=== PATIENT | male | born 1990 | race Native Hawaiian/Other Pacific Islander ===

== ENCOUNTER 2021-10-20 15:28 | Emergency (ER) | payer SELFPAY ==
[2021-10-21 01:13] LABS: Basophils # (Auto) 0.1 K/mm3 (0.0-0.1); Basophils % (Auto) 0.9 % (0.0-1.8); Eosinophils # (Auto) 0.2 K/mm3 (0.0-0.4); Eosinophils % (Auto) 1.9 % (0.0-4.3); Hematocrit 45.4 % (35.5-45.6); Hemoglobin 15.2 gm/dl (11.8-15.2); Lymphocytes # (Auto) 2.4 K/mm3 (1.2-5.4); Lymphocytes % (Auto) 27.3 % (13.4-35.0); Mean Corpuscular HGB Conc 33 % (32-34); Mean Corpuscular Volume 90 fl (84-94); Monocytes # (Auto) 0.7 K/mm3 (0.0-0.8); Monocytes % (Auto) 8.3 % (0.0-7.3); Platelet Count 326 K/mm3 (140-440); Red Blood Count 5.03 M/mm3 (3.65-5.03); Red Cell Distribution Width 12.6 % (13.2-15.2)
[2021-10-21 01:24] LABS: INR 0.96 (0.87-1.13)
[2021-10-21 01:38] LABS: Alanine Aminotransferase 43 units/L (7-56); BUN/Creatinine Ratio 17; Blood Urea Nitrogen 15 mg/dL (9-20); Calcium 9.7 mg/dL (8.4-10.2); Hemolysis Index 12
--- NOTE | 2021-10-21 01:49 | XRay Report ---
CHEST 1 VIEW INDICATION / CLINICAL INFORMATION: sob CP. COMPARISON: Chest x-ray 11/21/2008 FINDINGS: SUPPORT DEVICES: None. HEART / MEDIASTINUM: No significant abnormality. LUNGS / PLEURA: No significant pulmonary or pleural abnormality. BONES: No significant osseous abnormality. ADDITIONAL FINDINGS: No significant additional findings. IMPRESSION: 1. No active cardiopulmonary disease. Signer Name: Lyle Montelongo II, MD Signed: 10/21/2021 1:45 AM Workstation Name: [id number]
[2021-10-21] MEDS ORDERED: SODIUM CHLORIDE 0.9% 1000 ML 1,000 ML IV ONE (03:06)
[2021-10-21] MEDS ORDERED: KETOROLAC 30 MG/1 ML INJ IV ONE (03:06)
[2021-10-21 03:40] LABS: Bilirubin,Urine NEG (Negative); Blood,Urine NEG (Negative); Color,Urine Yellow (Yellow); Mucus,Urine FEW /HPF; Protein,Urine <15 mg/dL mg/dL (Negative); Urobilinogen,Urine < 2.0 mg/dL (<2.0)
--- NOTE | 2021-10-21 04:12 | Cat Scan Report ---
CT ABDOMEN AND PELVIS WITH CONTRAST INDICATION / CLINICAL INFORMATION: Patient complains of abdominal pain. TECHNIQUE: Axial CT images were obtained through the abdomen and pelvis after 100 cc Omnipaque [address] scans at this location are performed using CT dose reduction for ALARA by means of automated exposure control. COMPARISON: None available. FINDINGS: LOWER CHEST: No significant abnormality of the imaged chest. LIVER: Diffuse low attenuation compatible with hepatic steatosis. GALLBLADDER: No significant abnormality. BILE DUCTS: No significant abnormality. SPLEEN: No significant abnormality. PANCREAS: No significant abnormality. ADRENALS: No significant abnormality. RIGHT KIDNEY / URETER: No significant abnormality. LEFT KIDNEY / URETER: No significant abnormality. STOMACH / DUODENUM / SMALL BOWEL: No significant abnormality. COLON: Diverticulosis without acute inflammation. APPENDIX: No significant abnormality. PERITONEUM: No free air or free fluid are present within the abdomen or pelvis. LYMPH NODES: No significant adenopathy. AORTA / ARTERIES: No significant abnormality. IVC / VEINS: No significant abnormality. URINARY BLADDER: Minimal wall thickening of the urinary bladder likely influenced by low bladder volu me. REPRODUCTIVE ORGANS: No significant abnormality. ADDITIONAL ABDOMINAL/PELVIC FINDINGS: None. SKELETAL SYSTEM: No significant abnormality. IMPRESSION: 1. No acute findings within the abdomen or pelvis. Signer Name: Lyle Montelongo II, MD Signed: 10/21/2021 4:08 AM Workstation Name: [id number]
--- NOTE | 2021-10-21 04:37 | Ultrasound Report ---
ULTRASOUND ABDOMEN, LIMITED INDICATION / CLINICAL INFORMATION: pain. COMPARISON: None available. FINDINGS: PANCREAS: Not well visualized. AORTA: Longitudinal images of the aorta demonstrate no significant abnormality. IVC: Longitudinal images of the inferior vena cava demonstrate no significant abnormality. LIVER: The liver appears hyperechoic. Right hepatic lobe measures 16.1 cm. Normal hepatopedal blood f low in the main portal vein. GALLBLADDER: Echogenic sludge within the gallbladder. Wall thickness is within normal limits measurin g 2.7 mm. Small stones are not excluded. BILE DUCTS: No specific abnormality of the intrahepatic bile ducts. Common duct not identified. RIGHT KIDNEY: Where visualized, the right kidney is grossly normal. FREE FLUID: None. ADDITIONAL FINDINGS: None. IMPRESSION: 1. Hyperechoic appearance of the liver compatible with hepatic steatosis. 2. Gallbladder sludge and/or stones without evidence of cholecystitis. Signer Name: Lyle Montelongo II, MD Signed: 10/21/2021 4:33 AM Workstation Name: [id number]
--- NOTE | 2021-10-21 05:36 | Cat Scan Report ---
CTA CHEST WITH CONTRAST INDICATION / CLINICAL INFORMATION: Shortness of breath, elevated D-dimer. TECHNIQUE: Axial CT images were obtained through the chest after injection of 65 cc Omnipaque 350 IV contrast. 3 plane MIP and/or 3D reconstructions were produced. All CT scans at this location are perf ormed using CT dose reduction for ALARA by means of automated exposure control. COMPARISON: CT abdomen and pelvis same date FINDINGS: VASCULAR FINDINGS: PULMONARY ARTERY: Pulmonary artery is normal in size. No filling defects are present compatible with pulmonary artery embolus.. THORACIC AORTA: No significant abnormality. CORONARY ARTERY CALCIFICATION: Absent -- None. NONVASCULAR FINDINGS: LOWER NECK:Soft tissues of the lower neck and thyroid demonstrate no significant abnormalities or acu te findings. HEART: No significant abnormality. MEDIASTINUM / LAYNE: Small amount of residual thymus. ESOPHAGUS: No significant abnormality. LYMPH NODES: No adenopathy within the axilla, mediastinum, or layne. LUNGS: No acute air space or interstitial disease. PLEURA: No pleural effusion. No pneumothorax. THORACIC SOFT TISSUES: No significant abnormality of the chest wall or upper thoracic musculature. BONES: No significant skeletal abnormalities. ADDITIONAL CHEST FINDINGS: None. UPPER ABDOMEN: No significant interval abnormality. IMPRESSION: 1. No CT evidence for pulmonary embolism. 2. No acute findings. Signer Name: Lyle Montelongo II, MD Signed: 10/21/2021 5:31 AM Workstation Name: [id number]
--- NOTE | 2021-10-21 05:38 | Emergency Department Report ---
ED Abdominal Pain HPI - General Chief Complaint: Abdominal Pain Stated Complaint: CHEST PAIN/KELTON/HBP/REF BY URGENT CARE Time Seen by Provider: 10/21/21 03:00 Source: patient Mode of arrival: Ambulatory Limitations: No Limitations - History of Present Illness Initial Comments: I was sent here by urgent care because they think I might have copd pt was sent here because he was told his x ray was abnormal has SOBand RUQ abdominal pain not a smoker, no chets pain no fever no cough no drugs no past medical history -: Gradual, hour(s) Location: RUQ Radiation: none Migration to: no migration Severity scale (0 -10): 6 Consistency: constant Worsens With: nothing Associated Symptoms: hematochezia. denies: denies other symptoms, nausea, vomiting, diarrhea - Related Data Allergies Allergy/AdvReac Type Severity Reaction Status Date / Time No Known Allergies Allergy Verified 10/20/21 15:35 ED Review of Systems ROS: Stated complaint: CHEST PAIN/KELTON/HBP/REF BY URGENT CARE Other details as noted in HPI Constitutional: denies: chills, fever Eyes: denies: eye pain, eye discharge, vision change ENT: denies: ear pain, throat pain Respiratory: denies: cough, shortness of breath, wheezing Cardiovascular: denies: chest pain, palpitations Endocrine: no symptoms reported Gastrointestinal: denies: abdominal pain, nausea, diarrhea Genitourinary: denies: urgency, dysuria Musculoskeletal: denies: back pain, joint swelling, arthralgia Skin: denies: rash, lesions Neurological: denies: headache, weakness, paresthesias Psychiatric: denies: anxiety, depression Hematological/Lymphatic: denies: easy bleeding, easy bruising ED Past Medical Hx - Past Medical History Previous Medical History?: No Hx Hypertension: No Hx CVA: No Hx Congestive Heart Failure: No Additional medical history: bronchitis - Surgical History Past Surgical History?: No - Social History Smoking Status: Never Smoker Substance Use Type: None ED Physical Exam - General Limitations: No Limitations General appearance: alert, in no apparent distress - Head Head exam: Present: atraumatic, normocephalic - Eye Eye exam: Present: normal appearance - ENT ENT exam: Present: mucous membranes moist - Neck Neck exam: Present: normal inspection - Respiratory Respiratory exam: Present: normal lung sounds bilaterally. Absent: respiratory distress - Cardiovascular Cardiovascular Exam: Present: regular rate, normal rhythm. Absent: systolic murmur, diastolic murmur, rubs, gallop - GI/Abdominal GI/Abdominal exam: Present: soft, tenderness - Rectal Rectal exam: Present: deferred - Extremities Exam Extremities exam: Present: normal inspection - Back Exam Back exam: Present: normal inspection - Neurological Exam Neurological exam: Present: alert, oriented X3 - Psychiatric Psychiatric exam: Present: normal affect, normal mood - Skin Skin exam: Present: warm, dry, intact, normal color. Absent: rash ED Course Vital Signs 10/20/21 10/20/21 10/21/21 15:36 15:45 03:15 Temperature 98.5 F Pulse Rate 116 H Respiratory 20 Rate Blood Pressure 165/101 O2 Sat by Pulse 97 100 98 Oximetry 10/21/21 10/21/21 10/21/21 04:00 04:16 04:30 Temperature Pulse Rate Respiratory Rate Blood Pressure 147/86 136/87 141/74 O2 Sat by Pulse 94 96 98 Oximetry 10/21/21 10/21/21 10/21/21 04:46 05:08 05:16 Temperature Pulse Rate Respiratory Rate Blood Pressure 127/76 133/77 133/77 O2 Sat by Pulse 98 96 97 Oximetry 10/21/21 05:30 Temperature Pulse Rate Respiratory Rate Blood Pressure 126/66 O2 Sat by Pulse 97 Oximetry ED Medical Decision Making - Lab Data Result diagrams: 10/21/21 00:49 10/21/21 00:49 - EKG Data EKG shows normal: sinus rhythm Rate: tachycardia - EKG Data When compared to previous EKG there are: no significant change - Radiology Data Radiology results: report reviewed, image reviewed - Medical Decision Making work up neg , CTA abdomen negative gall bladder negative , CTA negative Critical care attestation.: If time is entered above; I have spent that time in minutes in the direct care of this critically ill patient, excluding procedure time. ED Disposition Clinical Impression: Abdominal pain Disposition: 01 HOME / SELF CARE / HOMELESS Is pt being admited?: No Does the pt Need Aspirin: No Condition: Stable Instructions: Abdominal Pain, Adult, [id number] Referrals: PRIMARY CARE, [Primary Care Provider] - 3-5 Days
[2021-10-21 05:58] VITALS: BP 121/75
--- NOTE | 2021-10-21 10:16 | Electrocardiograph Report ---
[facility] Test Date: 2021-10-20 Test Time: 15:42:56 Pat Name: SHAR SUBRAMANIAN Department: Room: Gender: M Environmental Program Manager: FAUSTO : 1990 Requested By: FELIPE BRAVO Order Number: [id number] Reading MD: Mikael Ledezma Measurements Intervals [place] Rate: 103 P: 54 WA: 153 QRS: -6 QRSD: 106 T: 23 QT: 339 QTc: 444 Interpretive Statements Sinus tachycardia No previous ECG available for comparison Electronically Signed On 10-21-2021 10:16:24 EDT by Mikael Ledezma
== END 2021-10-21 05:59 | disposition home or self-care (01) ==
LOC: ED 15:28
DX: R10.11 Right upper quadrant pain (principal); R06.02 Shortness of breath
CPT/HCPCS: 36415; 71046; 71275; 74177; 76705; 80053; 81001; 83690; 84484; 85025; 85379; 85610; 85730; 93005; 96361; 96374; 99284; J1885; J7030; Q9967